=== PATIENT | female | born 1995 | race Caucasian/White ===

== ENCOUNTER 2016-08-21 10:43 | Outpatient (CLI) | payer OTHER ==
--- NOTE | 2016-08-21 11:55 | DIAGNOSTIC IMAGING REPORT ---
PROCEDURE: XR SINUSES LESS THAN 3 VIEWS INDICATION: CHRONIC SINUSITIS TECHNIQUE: Single rodrigues view. COMPARISON: None. FINDINGS: Paranasal sinuses are clear. IMPRESSION: 1. Normal sinuses.
--- NOTE | 2016-08-21 11:55 | DIAGNOSTIC IMAGING REPORT ---
PROCEDURE: XR SINUSES LESS THAN 3 VIEWS INDICATION: CHRONIC SINUSITIS TECHNIQUE: Single rodrigues view. COMPARISON: None. FINDINGS: Paranasal sinuses are clear. IMPRESSION: 1. Normal sinuses.
--- NOTE | 2016-08-21 12:36 | DIAGNOSTIC IMAGING REPORT ---
PROCEDURE: US COMPLETE PELVIC INDICATION: PCOS, AMENORRHEA TECHNIQUE: Transabdominal and endovaginal nino scale and color Doppler sonographic images of the female pelvis were obtained. COMPARISON: None. FINDINGS: TRANSABDOMINAL SCANS: Anteverted uterus measures 6.6 x 3.7 x 2.2 cm Normal contour and echotexture. Normal adnexa without suspicious mass. The visible portion of the urinary bladder is normal. No significant free pelvic fluid. TRANSVAGINAL SCANS: The uterus is anteverted in position and has a homogeneous myometrial echotexture. The endometrium is difficult to distinguish. No endometrial fluid collections or suspicious masses. The right ovary measures 4.2 x 2.1 x 1.4 cm and has a normal follicular echotexture. There is normal arterial and venous ovarian flow present. The left ovary measures 4.3 x 1.9 x 1.1 cm and also has a normal follicular echotexture and normal vascularity. No suspicious adnexal masses or free pelvic fluid. IMPRESSION: 1. Normal pelvic ultrasound.
== END 2016-08-21 23:00 ==
LOC: US SRH 10:43 → XR SRH 10:43 → US SRH 11:00
DX: J32.9 Chronic sinusitis, unspecified (principal); N91.2 Amenorrhea, unspecified